=== PATIENT | female | born 1950 | race African-American/Black ===

== ENCOUNTER 2019-02-18 12:12 | Emergency (ER) | payer BC ==
[2019-02-18 12:22] VITALS: TEMP 98; BMI 31.1
--- NOTE | 2019-02-18 13:01 | PDOC ---
Attending Attestation - Resident Resident Name: Jules Gaytan - ED Attending Attestation I have performed the following: I have examined & evaluated the patient, The case was reviewed & discussed with the resident, I agree w/resident's findings & plan - HPI HPI: 02/18/19 14:43 Jamilah 69 YOF h/o HTN, prior HLD presenting with 1 week sensation of choking sensation, diaphoresis and flushing. she admits to ~4-5 months of morning sweats and flushed sensation, +heartburn. she has noted globus sensation involving left side of throat/neck. tolerating PO intake and secretions Today, at approx 830AM - she had episode of diaphoresis and flushed feeling/ sensation into her face. BP noted to be elevated, in PMD office 198/100. called her PMD, went to see Dr Malloy in the office, referred to the ED for eval. she is noncompliant with medications, which she admits does not want to take too much, currently on Bystolic, Ranexa - Stopped taking ranexa yesterday as she thought these were related to her sx. saw Dr Ramírez, her log processor operator, earlier this week, supposed to f/u GI Dr Rangel and ENT Dr Banegas (today, but cancelled appt) for her throat discomfort/ globus sensation. No chest pain, sob. No other medications used. No allergic symptoms or triggers. - Physicial Exam PE: 02/18/19 14:46 Agree with the resident's HPI and PE as documented in the electronic medical record. NAD, well appearing, EOMI, PERRL, nl conjunctiva, anicteric; Normal phonation, airway patent, uvula is midline, no oral pharyngeal lesions, clear. Neck supple , no meningeal signs, lungs clear, RRR, abdomen soft nontender. no rebound, guarding. Back nontender. FERNANDEZ x4, no focal neuro deficits. No peripheral edema. normal color for ethnicity, WWP. - Medical Decision Making 02/18/19 14:47 Vital Signs Temp Pulse Resp BP Pulse Ox 98 F 60 18 184/89 H 98 02/18/19 12:19 02/18/19 14:46 02/18/19 14:46 02/18/19 14:46 02/18/19 14:46 ddx. ACS, arrhythmia, electrolyte/metabolic derangements, infection, mass unlikely dissection or aortic pathology or PE. VS reviewed, +hypertensive but downtrended, likely autoregulated and less than earlier reported BP. no tachy, no respiratory distress normal sats. labs and lytes wnl. cxr clear trop neg, x1, EKG unremarkable. will need 2 trop, EKG due to atypical sx. no cp or sob. neuro intact airway patent, so doubt obstruction or infection there. HTN noted, BP has been downtrending. currently on ranexa and bystolic, skipped ranexa yesterday. repeat trop at 3 hours negative, EKG unchanged/stable, no elevations/ depressions or ST segment derangements no cp or sob on reeval, ambulatory, feels improved and eager for discharge communicated with dr Ramírez and Dr Malloy recs: no acute intervention. known to have poor compliance with medications and episodes have been chronic, and likely from HTN/poor compliance with regimen. DC stable condition, return precautions, compliance and followup encouraged with PMD/subspecialists as discussed 02/18/19 15:44 02/18/19 17:01 02/18/19 17:03 Heart Score/ECG Review #1 ECG reviewed & interpreted by me at: 12:35 General ECG Interpretation: Sinus Rhythm, Normal Rate, Normal Intervals 02/18/19 13:01 nonspecific T wave flattening/inversion in III, AVF.
[2019-02-18 13:08] LABS: BASO % 1.1 % (0-2.0); EOS % 0.8 % (0-4.5); HEMATOCRIT 38.3 % (32.4-45.2); HEMOGLOBIN 12.5 GM/dL (10.7-15.3); LYMPH % 37.8 % (8-40); MCH 28.7 pg (25.7-33.7); MCHC 32.5 g/dl (32.0-36.0); MEAN CELL VOLUME 88.5 fl (80-96); MEAN PLT VOLUME 9.9 fl (7.5-11.1); MONO % 7.9 % (3.8-10.2); NEUT % 52.4 % (42.8-82.8); PLATELET COUNT 218 K/MM3 (134-434); RBC 4.33 M/mm3 (3.60-5.2); RDW 13.9 % (11.6-15.6); WHITE BLOOD COUNT 9.1 K/mm3 (4.0-10.0)
--- NOTE | 2019-02-18 13:14 | PDOC ---
History of Present Illness - General Chief Complaint: Blood Pressure Problem Stated Complaint: H/BLOOD PRESSURE Time Seen by Provider: 02/18/19 12:25 - History of Present Illness Initial Comments: 02/18/19 13:06 69f with pmh of HTN sent from Dr. Malloy's office for a week of facial flushing, palpitation, diaphoresis and foreign object sensation in the throat. HAd a colleague check her BP and went to her pcp when she found out it was in the 200's systolic. Denies chest pain, shortness of breath, change in vision, headache or abdominal pain. Spoke to her reinstatement clerk who said she was non-compliant with her medication. Asked him to cut back on it. Past History - Past Medical History Allergies/Adverse Reactions: Allergies Allergy/AdvReac Type Severity Reaction Status Date / Time No Known Allergies Allergy Verified 02/18/19 12:17 Home Medications: Ambulatory Orders Aspirin [ASA -] 81 mg PO DAILY 02/18/19 Nebivolol HCl [Bystolic] 20 mg PO BID 02/18/19 Ranolazine [Ranexa -] 500 mg PO BID 02/18/19 COPD: No HTN: Yes - Surgical History Appendectomy: Yes - Psycho Social/Smoking Cessation Hx Smoking History: Former smoker Have you smoked in the past 12 months: No If you are a former smoker, when did you quit?: 2.5 years ago Information on smoking cessation initiated: No Review of Systems - Review of Systems Able to Perform ROS?: Yes Is the patient limited [place] proficient: No Constitutional: No: Symptoms Reported HEENTM: Yes: See HPI Respiratory: No: Symptoms reported Cardiac (ROS): No: Symptoms Reported ABD/GI: No: Symptoms Reported : No: Symptoms Reported Musculoskeletal: No: Symptoms Reported Integumentary: Yes: See HPI All Other Systems: Reviewed and Negative *Physical Exam - Vital Signs Last Vital Signs Temp Pulse Resp BP Pulse Ox 98 F 68 18 152/74 99 02/18/19 12:19 02/18/19 12:19 02/18/19 12:19 02/18/19 12:02/18/19 12:40 - Physical Exam General Appearance: Yes: Nourished, Appropriately Dressed. No: Apparent Distress HEENT: positive: EOMI, HAILY, Normal ENT Inspection, Other (red flushed race and neck, no mass palpated in the neck no bruits) Neck: positive: Trachea midline, Normal Thyroid, Supple. negative: Tender, Carotid bruit, Decreased range of motion, Stridor, Lymphadenopathy (R), Lymphadenopathy (L), Rigidity, Tender lateral, Tender midline, Thyromegaly Respiratory/Chest: positive: Lungs Clear, Normal Breath Sounds. negative: Chest Tender, Respiratory Distress Cardiovascular: positive: Regular Rhythm, Regular Rate, S1, S2 Gastrointestinal/Abdominal: positive: Normal Bowel Sounds, Soft, Protuberent. negative: Tender Musculoskeletal: positive: Normal Inspection. negative: CVA Tenderness Extremity: positive: Normal Capillary Refill, Normal Inspection, Normal Range of Motion Integumentary: positive: Other (flushed face and neck. ) Neurologic: positive: Fully Oriented, Alert, Normal Mood/Affect, Normal Response , Motor Strength 08/30 ED Treatment Course - LABORATORY CBC & Chemistry Diagram: 02/18/19 13:00 02/18/19 13:00 Medical Decision Making - Medical Decision Making 02/18/19 13:54 69F with high blood pressure, facial flushing, diaphoresis foreign object sensation in the neck. Will check labs for end organ damange and thyroid level also trops. CXR to check for widened mediastinum or masses. 02/18/19 15:03 All labs and cxr wnl. EKG: ekg: Sinus bradycardia possible left ventricular hypertrophy Will repeat troponin at 1530 and dc if negative,. 02/18/19 17:05 Negative troponin Repeat ekg: Sinus bradycardia with PVC's. possible left ventricular hypertrophy Ok to dc with strict follow up. Discharge - Discharge Information Problems reviewed: Yes Clinical Impression/Diagnosis: Hypertension Condition: Improved Disposition: HOME - Admission No - Follow up/Referral Referrals: Saul Malloy MD [Primary Care Provider] - Liz Mckeon MD [Staff Physician] - Gisel Rangel MD [Staff Physician] - - Patient Discharge Instructions Patient Printed Discharge Instructions: DI for High Blood Pressure Additional Instructions: Follow up with your pcp, reinstatement clerk and Gi doctors. Come back to the emergency department for any new, worsening or concerning symptom. - Post Discharge Activity
[2019-02-18 14:04] LABS: ALBUMIN 4.2 g/dl (3.4-5.0); BILIRUBIN,TOTAL 0.1 mg/dL (0.2-1); BLOOD UREA NITROGEN 17.3 mg/dL (7-18); CALCIUM 9.2 mg/dL (8.5-10.1); CREATININE 0.7 mg/dL (0.55-1.3); POTASSIUM 4.2 mmol/L (3.5-5.1); TOT PROT 7.3 g/dl (6.4-8.2)
--- NOTE | 2019-02-18 15:52 | EKG ---
Test Reason : Blood Pressure : / mmHG Vent. Rate : 057 BPM Atrial Rate : 057 BPM P-R Int : 136 ms QRS Dur : 094 ms QT Int : 426 ms P-R-T Axes : 047 -10 011 degrees QTc Int : 414 ms SINUS BRADYCARDIA POSSIBLE LEFT ATRIAL ENLARGEMENT LEFT VENTRICULAR HYPERTROPHY ABNORMAL ECG NO PREVIOUS ECGS AVAILABLE Confirmed by ROSEMARY COLLINS MD ([id number]) on 02/18/2019 3:52:23 PM Referred By: Confirmed By:ROSEMARY COLLINS MD
[2019-02-18 17:23] VITALS: BP 176/70; PULSE 70
--- NOTE | 2019-02-19 13:33 | EKG ---
Test Reason : Blood Pressure : / mmHG Vent. Rate : 049 BPM Atrial Rate : 049 BPM P-R Int : 138 ms QRS Dur : 084 ms QT Int : 456 ms P-R-T Axes : 048 -07 013 degrees QTc Int : 411 ms SINUS BRADYCARDIA WITH PREMATURE SUPRAVENTRICULAR COMPLEXES POSSIBLE LEFT ATRIAL ENLARGEMENT LEFT VENTRICULAR HYPERTROPHY ABNORMAL ECG WHEN COMPARED WITH ECG OF 18-FEB-2019 12:36, PREMATURE SUPRAVENTRICULAR COMPLEXES ARE NOW PRESENT Confirmed by BALAJI SOLER, COLLEEN ([id number]) on 02/19/2019 1:33:02 PM Referred By: Confirmed By:CLOLEEN CARPIO MD
== END 2019-02-18 17:29 | disposition home or self-care (01) ==
LOC: JER 12:12
DX: I10 Essential (primary) hypertension (principal); Z79.82 Long term (current) use of aspirin; Z87.891 Personal history of nicotine dependence
CPT/HCPCS: 36415; 71046-TC-FY; 80053; 83735; 84443; 84484; 85025; 93005; 93010; 99284-25

== ENCOUNTER 2020-11-09 19:23 | Emergency (ER) | payer BC ==
[2020-11-09 19:40] VITALS: TEMP 98.3; BMI 29.6
[2020-11-09] MEDS ORDERED: predniSONE 20 MG TABLET (UD) PO ONE (20:41)
[2020-11-09] MEDS ORDERED: FAMOTIDINE 10 MG TABLET PO ONE (20:41)
[2020-11-09] MEDS ORDERED: FAMOTIDINE 10 MG TABLET ONE (20:47)
[2020-11-09] MEDS ORDERED: predniSONE 20 MG TABLET (UD) ONE (20:47)
[2020-11-09 21:47] VITALS: BP 164/75; PULSE 55
== END 2020-11-09 21:44 | disposition home or self-care (01) ==
LOC: JER 19:23
DX: T78.40XA Allergy, unspecified, initial encounter (principal)
CPT/HCPCS: 99283-25

== ENCOUNTER 2022-05-02 18:25 | Inpatient (IN) | payer OTHER, BC ==
[2022-05-02 18:42] VITALS: BMI 27.6
[2022-05-02] MEDS ORDERED: ONDANSETRON 4 MG/2 ML VIAL IVPUSH ONE (20:29)
[2022-05-02] MEDS ORDERED: ACETAMINOPHEN 1000 MG/100 ML BAG IVPB ONE (20:29)
[2022-05-02] MEDS ORDERED: FAMOTIDINE 20 MG/50 ML IVPB 20 MG/50 ML MG IVPB ONE ×2 (20:29→21:25)
[2022-05-02] MEDS ORDERED: ONDANSETRON 4 MG/2 ML VIAL ONE (21:24)
[2022-05-02] MEDS ORDERED: ACETAMINOPHEN INJECTION 100 ML IVPB ONE (21:24)
[2022-05-02 22:01] LABS: HEMATOCRIT 40.1 % (32.4-45.2); HEMOGLOBIN 13.2 GM/dL (10.7-15.3); INR 1.15 (0.83-1.09); MCH 28.4 pg (25.7-33.7); MEAN CELL VOLUME 86.1 fl (80-96); MEAN PLT VOLUME 9.7 fl (7.5-11.1); PLATELET COUNT 272 10^3/uL (134-434); PROTHROMBIN TIME (PATIENT) 13.3 SEC (9.7-13.0); RBC 4.66 M/mm3 (3.60-5.2); RDW 14.1 % (11.6-15.6); WHITE BLOOD COUNT 22.5 K/mm3 (4.0-10.0)
[2022-05-02 22:04] LABS: ACTIVATED PTT 29.8 SECONDS (25.2-36.5)
[2022-05-02 22:14] LABS: ALBUMIN 3.9 g/dl (3.4-5.0); CALCIUM 9.4 mg/dL (8.5-10.1)
[2022-05-02 22:15] LABS: BLOOD UREA NITROGEN 20.6 mg/dL (7-18)
[2022-05-02 22:17] LABS: CREATININE 0.8 mg/dL (0.55-1.3)
[2022-05-02 22:19] LABS: BILIRUBIN,TOTAL 0.8 mg/dL (0.2-1); TOT PROT 7.9 g/dl (6.4-8.2)
[2022-05-02 23:00] LABS: ANISOCYTOSIS 0; MACROCYTOSIS 0
[2022-05-03] MEDS ORDERED: SODIUM CHLORIDE 0.9% 500 ML INFUS.BAG IV ONE (00:29)
[2022-05-03] MEDS ORDERED: PIPERACILLIN/TAZOB 3.375 GM 3.375 GM in DEXTROSE 5%-WATER - 50 ML IVPB ONE (00:30)
[2022-05-03] MEDS ORDERED: PIPERACILLIN/TAZOB 3.375 GM 3.375 GM/50 ML BAG IVPB ONE ×2 (01:31→18:11)
[2022-05-03] MEDS ORDERED: SODIUM CHLORIDE 1,000 ML IV SCH (04:00)
[2022-05-03] MEDS ORDERED: ACETAMINOPHEN 1000 MG/100 ML BAG IVPB ONE (05:46)
[2022-05-03] MEDS ORDERED: ACETAMINOPHEN INJECTION 100 ML IVPB ONE (06:13)
[2022-05-03 09:25] LABS: HEMATOCRIT 35.3 % (32.4-45.2); HEMOGLOBIN 11.5 GM/dL (10.7-15.3); MCH 28.3 pg (25.7-33.7); MCHC 32.6 g/dl (32.0-36.0); MEAN CELL VOLUME 86.7 fl (80-96); MEAN PLT VOLUME 9.8 fl (7.5-11.1); PLATELET COUNT 245 10^3/uL (134-434); RBC 4.07 M/mm3 (3.60-5.2); RDW 14.3 % (11.6-15.6); WHITE BLOOD COUNT 17.9 K/mm3 (4.0-10.0)
[2022-05-03] MEDS ORDERED: HYDROCHLOROTHIAZIDE 25 MG TABLET (FP) ONE (09:42)
[2022-05-03] MEDS ORDERED: LOSARTAN POTASSIUM 50 MG TABLET ONE (09:43)
[2022-05-03 09:52] LABS: ALBUMIN 3.4 g/dl (3.4-5.0); CALCIUM 8.7 mg/dL (8.5-10.1)
[2022-05-03 09:54] LABS: CREATININE 0.7 mg/dL (0.55-1.3); PHOSPHOROUS 2.8 mg/dL (2.5-4.9)
[2022-05-03 10:00] LABS: BILIRUBIN,TOTAL 0.6 mg/dL (0.2-1); TOT PROT 6.5 g/dl (6.4-8.2)
[2022-05-03] MEDS: HYDROCHLOROTHIAZIDE 25 MG TABLET (FP) PO SCH (10:20)
[2022-05-03] MEDS: LOSARTAN POTASSIUM 50 MG TABLET PO SCH (10:20)
[2022-05-03 10:21] LABS: ANISOCYTOSIS 0; HELMET CELLS 0; HOWELL-JOLLY BODIES 0; MACROCYTOSIS 0; OVALOCYTE 0; ROULEAU 0; SICKELED CELLS 0; TARGET CELLS 0; TEAR DROP CELLS 0; TOXIC GRANULATION 0
[2022-05-03] MEDS ORDERED: CIPROFLOXACIN 400 MG/D5W 400 MG/200 ML IVPB IVPB ONE (10:30)
[2022-05-03] MEDS ORDERED: traMADol HCL 50 MG TABLET PO PRN (11:54)
[2022-05-03] MEDS ORDERED: traMADol HCL 50 MG TABLET ONE ×2 (12:44→18:10)
[2022-05-03] MEDS ORDERED: oxyCODONE HCL 5 MG TABLET ONE (15:58)
[2022-05-03] MEDS: oxyCODONE HCL 5 MG TABLET PO PRN (16:03)
[2022-05-03] MEDS: traMADol HCL 50 MG TABLET PO PRN ×2 (18:14→20:23)
[2022-05-03] MEDS: PIPERACILLIN/TAZOB 3.375 GM 3.375 GM in DEXTROSE 5%-WATER - 50 ML IVPB SCH (18:15)
[2022-05-03] MEDS: SODIUM CHLORIDE 1,000 ML IVPB SCH (19:14)
[2022-05-03] MEDS ORDERED: ZOLPIDEM TARTRATE 5 MG TABLET ONE (21:28)
[2022-05-03] MEDS ORDERED: CIPROFLOXACIN 400 MG/D5W 400 MG/200 ML IVPB IVPB SCH (22:00)
[2022-05-03] MEDS: ZOLPIDEM TARTRATE 5 MG TABLET PO PRN (22:19)
[2022-05-03] MEDS: NEBIVOLOL 10 MG TABLET (FP) PO SCH (22:46)
[2022-05-04] MEDS: PIPERACILLIN/TAZOB 3.375 GM 3.375 GM in DEXTROSE 5%-WATER - 50 ML IVPB SCH ×3 (02:09→17:35)
[2022-05-04] MEDS: HYDROCHLOROTHIAZIDE 25 MG TABLET (FP) PO SCH (09:08)
[2022-05-04] MEDS: LOSARTAN POTASSIUM 50 MG TABLET PO SCH (09:09)
[2022-05-04 10:38] LABS: BASO % 0.5 % (0-2.0); EOS % 1.1 % (0-4.5); HEMATOCRIT 34.9 % (32.4-45.2); HEMOGLOBIN 11.3 GM/dL (10.7-15.3); LYMPH % 18.8 % (8-40); MCH 28.4 pg (25.7-33.7); MCHC 32.5 g/dl (32.0-36.0); MEAN CELL VOLUME 87.3 fl (80-96); MEAN PLT VOLUME 10.2 fl (7.5-11.1); MONO % 9.3 % (3.8-10.2); NEUT % 70.3 % (42.8-82.8); PLATELET COUNT 229 10^3/uL (134-434); RDW 13.9 % (11.6-15.6); WHITE BLOOD COUNT 16.8 K/mm3 (4.0-10.0)
[2022-05-04] MEDS: oxyCODONE HCL 5 MG TABLET PO PRN (14:52)
[2022-05-04] MEDS: SODIUM CHLORIDE 1,000 ML IVPB SCH ×2 (17:35→18:49)
[2022-05-04] MEDS: NEBIVOLOL 10 MG TABLET (FP) PO SCH (23:41)
[2022-05-04] MEDS: ZOLPIDEM TARTRATE 5 MG TABLET PO PRN (23:41)
[2022-05-05] MEDS: PIPERACILLIN/TAZOB 3.375 GM 3.375 GM in DEXTROSE 5%-WATER - 50 ML IVPB SCH ×3 (01:31→18:46)
[2022-05-05] MEDS: SODIUM CHLORIDE 1,000 ML IVPB SCH ×2 (06:32→21:27)
[2022-05-05] MEDS: HYDROCHLOROTHIAZIDE 25 MG TABLET (FP) PO SCH (09:27)
[2022-05-05] MEDS: LOSARTAN POTASSIUM 50 MG TABLET PO SCH (09:27)
[2022-05-05 11:24] LABS: BASO % 0.4 % (0-2.0); HEMATOCRIT 37.7 % (32.4-45.2); HEMOGLOBIN 12.1 GM/dL (10.7-15.3); LYMPH % 16.8 % (8-40); MCH 28.1 pg (25.7-33.7); MCHC 32.1 g/dl (32.0-36.0); MEAN CELL VOLUME 87.7 fl (80-96); MEAN PLT VOLUME 9.6 fl (7.5-11.1); MONO % 6.9 % (3.8-10.2); NEUT % 74.9 % (42.8-82.8); PLATELET COUNT 258 10^3/uL (134-434); RDW 13.8 % (11.6-15.6); WHITE BLOOD COUNT 17.5 K/mm3 (4.0-10.0)
[2022-05-05 12:16] LABS: ALBUMIN 3.3 g/dl (3.4-5.0); BILIRUBIN,TOTAL 0.4 mg/dL (0.2-1); BLOOD UREA NITROGEN 7.3 mg/dL (7-18); CALCIUM 8.7 mg/dL (8.5-10.1); CREATININE 0.8 mg/dL (0.55-1.3); TOT PROT 6.4 g/dl (6.4-8.2)
[2022-05-05] MEDS ORDERED: PEG 3350/NA SULF BICARB CL/KCL 4000 ML SOLN.RECON PO ONE (17:00)
[2022-05-05] MEDS: NEBIVOLOL 10 MG TABLET (FP) PO SCH (21:27)
[2022-05-05] MEDS: ZOLPIDEM TARTRATE 5 MG TABLET PO PRN (23:05)
[2022-05-06] MEDS: PIPERACILLIN/TAZOB 3.375 GM 3.375 GM in DEXTROSE 5%-WATER - 50 ML IVPB SCH ×3 (02:21→18:21)
[2022-05-06] MEDS: LOSARTAN POTASSIUM 50 MG TABLET PO SCH (12:37)
[2022-05-06] MEDS: HYDROCHLOROTHIAZIDE 25 MG TABLET (FP) PO SCH (12:38)
[2022-05-06 14:34] LABS: BASO % 0.3 % (0-2.0); EOS % 0.9 % (0-4.5); HEMATOCRIT 35.7 % (32.4-45.2); HEMOGLOBIN 11.7 GM/dL (10.7-15.3); LYMPH % 19.6 % (8-40); MCH 28.4 pg (25.7-33.7); MCHC 32.7 g/dl (32.0-36.0); MEAN CELL VOLUME 86.8 fl (80-96); MEAN PLT VOLUME 9.6 fl (7.5-11.1); MONO % 8.6 % (3.8-10.2); NEUT % 70.6 % (42.8-82.8); PLATELET COUNT 259 10^3/uL (134-434); RBC 4.12 M/mm3 (3.60-5.2); RDW 13.6 % (11.6-15.6); WHITE BLOOD COUNT 12.6 K/mm3 (4.0-10.0)
[2022-05-06 14:37] LABS: INR 1.37 (0.83-1.09); PROTHROMBIN TIME (PATIENT) 15.8 SEC (9.7-13.0)
[2022-05-06 15:28] LABS: CALCIUM 8.9 mg/dL (8.5-10.1)
[2022-05-06 15:29] LABS: ALBUMIN 3.4 g/dl (3.4-5.0); BLOOD UREA NITROGEN 7.6 mg/dL (7-18)
[2022-05-06 15:30] LABS: MAGNESIUM 2.1 mg/dL (1.8-2.4)
[2022-05-06 15:32] LABS: CREATININE 0.8 mg/dL (0.55-1.3); PHOSPHOROUS 2.6 mg/dL (2.5-4.9)
[2022-05-06 15:33] LABS: BILIRUBIN,TOTAL 0.3 mg/dL (0.2-1)
[2022-05-06 15:34] LABS: TOT PROT 6.7 g/dl (6.4-8.2)
[2022-05-06] MEDS: SODIUM CHLORIDE 1,000 ML IVPB SCH (18:21)
[2022-05-06] MEDS: KCL 10 MEQ IVPB 10 MEQ/100 ML INFUS.BAG IVPB SCH ×3 (19:01→23:23)
[2022-05-06] MEDS: NEBIVOLOL 10 MG TABLET (FP) PO SCH (21:31)
[2022-05-06] MEDS ORDERED: KCL 10 MEQ IVPB 10 MEQ/100 ML INFUS.BAG IVPB SCH (23:30)
[2022-05-07] MEDS: PIPERACILLIN/TAZOB 3.375 GM 3.375 GM in DEXTROSE 5%-WATER - 50 ML IVPB SCH ×2 (02:17→12:12)
[2022-05-07 07:18] VITALS: TEMP 97.8
[2022-05-07] MEDS: HYDROCHLOROTHIAZIDE 25 MG TABLET (FP) PO SCH (10:04)
[2022-05-07] MEDS: LOSARTAN POTASSIUM 50 MG TABLET PO SCH (10:05)
[2022-05-07 10:12] LABS: BASO % 0.7 % (0-2.0); EOS % 2.4 % (0-4.5); HEMATOCRIT 36.5 % (32.4-45.2); HEMOGLOBIN 11.9 GM/dL (10.7-15.3); LYMPH % 22.3 % (8-40); MCH 28.4 pg (25.7-33.7); MCHC 32.7 g/dl (32.0-36.0); MEAN CELL VOLUME 86.9 fl (80-96); MEAN PLT VOLUME 9.8 fl (7.5-11.1); MONO % 8.4 % (3.8-10.2); NEUT % 66.2 % (42.8-82.8); PLATELET COUNT 284 10^3/uL (134-434); WHITE BLOOD COUNT 11.1 K/mm3 (4.0-10.0)
[2022-05-07 10:48] LABS: ALBUMIN 3.4 g/dl (3.4-5.0)
[2022-05-07 10:49] LABS: CALCIUM 8.8 mg/dL (8.5-10.1)
[2022-05-07 10:51] LABS: CREATININE 0.8 mg/dL (0.55-1.3); PHOSPHOROUS 2.4 mg/dL (2.5-4.9)
[2022-05-07 10:52] LABS: TOT PROT 6.6 g/dl (6.4-8.2)
[2022-05-07 10:56] LABS: BILIRUBIN,TOTAL 0.4 mg/dL (0.2-1)
[2022-05-07 15:12] VITALS: BP 148/71; PULSE 68; RESP 19
[2022-05-07] MEDS ORDERED: POTASSIUM CHLORIDE ORAL LIQUID 20 MEQ/15 ML PO ONE (15:15)
== END 2022-05-07 16:27 | disposition home or self-care (01) | DRG 394 ==
LOC: JER 18:25 → JERBED 05-03 00:21 → J5S 05-04 02:01
PROVIDERS: ADMIT Internal Medicine; ATTEND Internal Medicine
PROC: 0DBN8ZX Excision of Sigmoid Colon, Via Natural or Artificial Opening Endoscopic, Diagnostic (ICD-10-PCS; principal; 2022-05-06 09:00)
DX: K55.9 Vascular disorder of intestine, unspecified (principal); K62.5 Hemorrhage of anus and rectum; D72.829 Elevated white blood cell count, unspecified; I10 Essential (primary) hypertension; K76.0 Fatty (change of) liver, not elsewhere classified; R59.0 Localized enlarged lymph nodes; K57.90 Diverticulosis of intestine, part unspecified, without perforation or abscess without bleeding; E87.6 Hypokalemia; K52.9 Noninfective gastroenteritis and colitis, unspecified; K64.8 Other hemorrhoids; E78.5 Hyperlipidemia, unspecified; R10.32 Left lower quadrant pain
CPT/HCPCS: 0241U-QW; 36415; 71045-TC-FY; 74174-TC; 76536-TC; 80053; 82272; 83605; 83615; 83690; 83735; 84100; 84484; 85025; 85610; 85730; 86140; 86850; 86900; 86901; 87040; 87045; 87046; 87324; 87449; 88305-TC; 93005; 93010; 99285-25; Q9967

== ENCOUNTER 2024-02-23 16:14 | Emergency (ER) | payer OTHER, BC ==
[2024-02-23 16:35] VITALS: BP 144/74; PULSE 83; RESP 18; TEMP 97.5; BMI 25.7
[2024-02-23 17:33] LABS: HEMATOCRIT 44.5 % (32.4-45.2); HEMOGLOBIN 14.2 G/dL (10.7-15.3); MCH 29.2 pg (25.7-33.7); MEAN CELL VOLUME 91.3 fl (80-96); MEAN PLT VOLUME 10.6 fl (7.5-11.1); PLATELET COUNT 137.2 10^3/uL (134-434); RBC 4.87 10^6/uL (3.60-5.2); RDW 14.9 % (11.6-15.6); WHITE BLOOD COUNT 20.4 10^3/uL (4.0-10.8)
[2024-02-23 18:09] LABS: ALBUMIN 4.4 g/dl (3.4-5.0); BILIRUBIN,TOTAL 0.7 mg/dl (0.2-1); CALCIUM 9.4 mg/dl (8.5-10.1); CREATININE 0.8 mg/dl (0.6-1.3); POTASSIUM 3.1 mmol/L (3.5-5.1); TOT PROT 6.8 g/dl (6.4-8.2)
[2024-02-23 18:30] LABS: PLATELET ESTIMATE ADEQUATE
[2024-02-23] MEDS ORDERED: PIPERACILLIN/TAZOBACTAM 4.5 GM VIAL IVPB ONE (20:38)
[2024-02-23] MEDS: PIPERACILLIN/TAZOB 4.5 GM 4.5 GM in DEXTROSE 5%-WATER - 100 ML IVPB ONE (20:40)
== END 2024-02-23 21:31 | disposition left against medical advice (07) ==
LOC: FER 16:14
DX: R19.7 Diarrhea, unspecified (principal); D72.829 Elevated white blood cell count, unspecified; K52.9 Noninfective gastroenteritis and colitis, unspecified; R10.32 Left lower quadrant pain; R11.2 Nausea with vomiting, unspecified
CPT/HCPCS: 36415; 74174-TC; 80053; 85027; 99284-25; Q9967